=== PATIENT | male | born 1945 | race Two or more races ===

== ENCOUNTER 2024-06-27 08:43 | Outpatient (CLI) | payer OTHER | END 2024-06-27 08:48 | disposition home or self-care (01) | LOC: SONOGRAMA 08:43 | PROVIDERS: ATTEND Pathology Anatomic Pathology | DX: D34 Benign neoplasm of thyroid gland (principal); E07.9 Disorder of thyroid, unspecified; E06.3 Autoimmune thyroiditis; E04.1 Nontoxic single thyroid nodule ==